=== PATIENT | female | born 2000 | race Caucasian/White ===

== ENCOUNTER 2020-11-10 07:04 | Emergency (ER) | payer MEDICAID ==
[~2020-11-10] VITALS: Ht 157.5 cm; Wt 72.1 kg
[2020-11-10 07:08] VITALS: BP 123/63
--- NOTE | 2020-11-10 07:11 | NUR ---
BIBA to bed 06
--- NOTE | 2020-11-10 07:21 | NUR ---
20 YO C/O VULVAR PAIN AND SWELLING X 5 DAYS. PAIN 9/10, BURNING. DENIES DYSURIA, DENIES TRAUMA OR RECENT SEXUAL INTERCOURSE. TOOK TYLENOL WHICH PROVIDED NO RELIEF. IN ED, VSS. NOT IN DISTRESS. CHANGED TO PT GOWN. ERMD MADE AWARE OF PT STATUS. LMP: OCTOBER 07, 2020 PMH: ANEMIA MEDS:NONE NKA
[2020-11-10] MEDS ORDERED: LIDOCAINE JELLY 2% 30 ML TUBE TP ONE (07:27)
[2020-11-10] MEDS ORDERED: LIDOCAINE 2% 1000 MG/50 ML VIAL INJ ONE (07:30)
[2020-11-10] MEDS ORDERED: ceFAZolin 1,000 MG VIAL IM ONE (07:55)
[2020-11-10] MEDS ORDERED: ACET-9527 PO (08:02)
[2020-11-10] MEDS ORDERED: FLUC150T PO (08:02)
[2020-11-10] MEDS ORDERED: IBUP-2213 PO (08:02)
[2020-11-10] MEDS ORDERED: CEPH-588 PO (08:02)
[2020-11-10] MEDS ORDERED: SULF-59 PO (08:02)
[2020-11-10] MEDS ORDERED: KETOROLAC 30 MG/ML VIAL IM ONE (08:05)
[2020-11-10] MEDS ORDERED: HYDROcodone/APAP 5/325 MG 1 TAB TAB PO ONE (08:05)
[2020-11-10 09:10] VITALS: BP 123/63
--- NOTE | 2020-11-10 09:10 | NUR ---
Patient discharged with v/s stable. Written and verbal after care instructions given and explained. Patient alert, oriented and verbalized understanding of instructions. Ambulatory with steady gait. All questions addressed prior to discharge. ID band removed. Patient advised to follow up with PMD. Rx of HYDROCODONE/ACETAMINOPHEN, CEPHALEXIN, FLUCONAZOLE, IBUPROFEN, BACTRIM given. Patient educated on indication of medication including possible reaction and side effects. Opportunity to ask questions provided and answered.
== END 2020-11-10 09:10 | disposition home or self-care (01) ==
LOC: MED 07:04
DX: N76.2 Acute vulvitis (principal); N76.0 Acute vaginitis; Z79.899 Other long term (current) drug therapy
CPT/HCPCS: 81025; 96372; 99284; J0690; J1885; J2001